=== PATIENT | female | born 1965 | race Caucasian/White ===

== ENCOUNTER 2018-11-07 09:18 | Day surgery (SDC) | payer MEDICAID ==
[2018-11-04 10:40] LABS: Basophils # (auto) 0 uL; Basophils % (auto) 0.3 % (0.0-2.0); Eosinophils # (auto) 0 uL; Eosinophils % (auto) 1.1 % (0.0-7.0); Hematocrit 45.1 % (36.0-46.0); Hemoglobin 15.9 g/dL (12.2-16.2); INR 1.09 (0.9-1.15); Lymphocytes # (auto) 0.8 uL; Lymphocytes % (auto) 21.4 % (10.0-50.0); Mean Corpuscular Hemoglobin 31.3 pg (28.0-32.0); Mean Corpuscular Hgb Conc. 35.2 g/dL (32.0-36.0); Mean Corpuscular Volume 88.9 fL (80.0-100.0); Monocytes # (auto) 0.3 uL; Monocytes % (auto) 7.7 % (0.0-12.0); Neutrophils # (auto) 2.7 uL; Neutrophils % (auto) 69.5 % (37.0-80.0); Nucleated Red Blood Cells % 0.6 %; Partial Thromboplastin Time 30.1 sec (23.64-32.05); Platelet Count (auto) 32 10^3/uL (140-450); Red Blood Cells 5.07 10^6/uL (4.0-5.20); Red Cell Distribution Width 14.5 % (11.8-14.3); White Blood Cell 3.9 10^3/uL (4.4-10.8)
[~2018-11-07] VITALS: Ht 162.6 cm; Wt 119.3 kg
[~2018-11-07 09:18] MED LIST: FLUMAZENIL 0.1 MG/ML INJ 10ML MDV IV ONE; LAM100T PO; LIDOCAINE VISCOUS 2% 15ML UD ONE; MONT10TA23 PO; NALOXONE HCL 0.4 MG/ML VIAL ONE; NOR10T; PANT40TA2 PO; SERDISK IN; SODIUM CHLORIDE LOCK 10 ML ONE; ZIPR80CA8 PO; diphenhdrAMINE HCL 50 MG/1 ML VL ONE
[2018-11-07] MEDS: fentaNYL CITRATE 100 MCG/2 ML VL ONE ×2 (10:07→10:11)
[2018-11-07] MEDS: MIDAZOLAM HCL 5 MG/ML-1ML VIAL ONE ×2 (10:07→10:11)
[2018-11-07 10:57] VITALS: BP 123/72
== END 2018-11-07 11:07 | disposition home or self-care (01) ==
LOC: SUR 09:18
PROVIDERS: ATTEND Internal Medicine Gastroenterology
DX: I85.00 Esophageal varices without bleeding (principal); K29.50 Unspecified chronic gastritis without bleeding; I86.4 Gastric varices; M19.90 Unspecified osteoarthritis, unspecified site; J45.909 Unspecified asthma, uncomplicated; Z88.1 Allergy status to other antibiotic agents; Z87.59 Personal history of other complications of pregnancy, childbirth and the puerperium; Z90.49 Acquired absence of other specified parts of digestive tract; Z86.19 Personal history of other infectious and parasitic diseases
CPT/HCPCS: 36415; 43235; 85025; 85610; 85730; J1200; J2250; J3010; J7030